=== PATIENT | female | born 1990 | race Caucasian/White ===

== ENCOUNTER 2024-01-15 16:41 | Emergency (ER) | payer MEDICAID ==
[~2024-01-15] VITALS: Ht 154.9 cm; Wt 81.8 kg
[2024-01-15 16:46] VITALS: TEMP 98.6
[2024-01-15] MEDS ORDERED: ARIP20TA63 PO (16:49)
[2024-01-15] MEDS ORDERED: BUPR-49 PO (16:49)
[2024-01-15] MEDS ORDERED: QUET50TA24 PO (16:49)
[2024-01-15 19:29] LABS: EOSINOPHILS % (AUTO) 1.2 % (1.0-6.0); HEMATOCRIT 41.9 % (36-46); HEMOGLOBIN 14.1 g/dL (12.0-16.0); LYMPHOCYTES # (AUTO) 1.9 K/uL (1.0-4.8); LYMPHOCYTES % (AUTO) 19.6 % (22.0-44.0); MEAN CORPUSCULAR HEMOGLOBIN 31.1 pg (26.0-34.0); MEAN CORPUSCULAR HGB CONC 33.6 G/dL (31.0-37.0); MEAN CORPUSCULAR VOLUME 93 fL (80-100); MONOCYTES # (AUTO) 0.9 K/uL (0.1-1.0); MONOCYTES % (AUTO) 8.7 % (2.0-9.0); NEUTROPHILS # (AUTO) 6.9 K/uL (1.8-7.7); NEUTROPHILS % (AUTO) 69.5 % (40.0-70.0); PLATELET COUNT (AUTO) 345 K/uL (150-450); RED BLOOD CELL COUNT(AUTO) 4.53 MIL/uL (4.00-5.20); RED CELL DISTRIBUTION WIDTH 12.8 % (11.5-14.5); WHITE BLOOD COUNT (AUTO) 9.8 K/uL (4.5-11.0)
[2024-01-15 19:40] LABS: CALCIUM, TOTAL 8.6 mg/dL (8.8-10.5); CREATININE 1.06 mg/dL (0.60-1.30); POTASSIUM 4.1 mmol/L (3.5-5.1)
[2024-01-15 23:00] VITALS: BP 125/56; PULSE 69; RESP 16; O2SAT 97
[2024-01-15] MEDS: CEPHALEXIN MONOHYDRATE 500 MG CAPSULE PO ONE (23:21)
[2024-01-15] MEDS: SULFAMETHOX/TRIMETH DS 800-160 MG/TABLET PO ONE (23:21)
[2024-01-16] MEDS: MetroNIDAZOLE 250 MG TABLET PO ONE (00:12)
[2024-01-16 00:34] LABS: APPEARANCE,URINE HAZY (CLEAR); BILIRUBIN,URINE NEGATIVE (NEGATIVE); COLOR,URINE LIGHT YELLOW (YELLOW); GLUCOSE, URINE (UA) NEGATIVE (NEGATIVE); KETONES,URINE NEGATIVE (NEGATIVE); LEUKOCYTE ESTERASE ,URINE LARGE (NEGATIVE); NITRATE,URINE NEGATIVE (NEGATIVE); OCCULT BLOOD,URINE NEGATIVE (NEGATIVE); PROTEIN,URINE TRACE mg/dL (NEGATIVE); SPECIFIC GRAVITIY, URINE 1.024 (1.003-1.030); UROBILINOGEN,URINE <=1.0 mg/dL (<=1.0)
[2024-01-16 01:00] LABS: BACTERIA,URINE Moderate /HPF (None Seen); RBC,URINE 0-2 /HPF (0-2); SQUAMOUS EPITHELIAL CELL,UR Few /LPF (None Seen); WBC,URINE 26-50 /HPF (0-5)
[2024-01-16] MEDS ORDERED: SULF-261 PO (02:14)
[2024-01-16] MEDS ORDERED: CEPH-558 PO (02:14)
[2024-01-16] MEDS ORDERED: METR500 PO (02:14)
[2024-01-16] MEDS ORDERED: ARIP400S3 IM (14:56)
[2024-01-16] MEDS ORDERED: NALT50TA33 PO (14:56)
[2024-01-16] MEDS ORDERED: QUET25TA PO (14:56)
[2024-01-16] MEDS ORDERED: ARIP10TA38 PO (14:56)
[2024-01-18 02:06] LABS: TREPONEMA PALLIDUM AB -TPPA Reactive (Non Reactive)
== END 2024-01-16 02:30 | disposition home or self-care (01) ==
LOC: EMS 16:45
DX: N76.0 Acute vaginitis (principal); B96.89 Other specified bacterial agents as the cause of diseases classified elsewhere; N76.2 Acute vulvitis; R30.0 Dysuria; Z79.899 Other long term (current) drug therapy
CPT/HCPCS: 80048; 81001; 84703; 85025; 86592; 86593; 86780; 87086; 87210; 87491; 87591; 99284

== ENCOUNTER 2024-01-16 14:37 | Emergency (ER) | payer MEDICAID ==
[~2024-01-16] VITALS: Ht 154.9 cm; Wt 79.1 kg
[~2024-01-16 14:37] MED LIST: ARIP20TA63 PO; BUPR-49 PO; CEPH-558 PO; METR500 PO; QUET50TA24 PO; SULF-261 PO
[2024-01-16] MEDS ORDERED: PENICILLIN G POTASSIUM 5 MILUNITS/VIAL IM ONE (14:45)
[2024-01-16 14:54] VITALS: BP 108/50; PULSE 82; RESP 18; TEMP 98.4; O2SAT 98
[2024-01-16] MEDS ORDERED: NALT50TA33 PO (14:56)
[2024-01-16] MEDS ORDERED: ARIP400S3 IM (14:56)
[2024-01-16] MEDS ORDERED: ARIP10TA38 PO (14:56)
[2024-01-16] MEDS ORDERED: QUET25TA PO (14:56)
[2024-01-16] MEDS ORDERED: PENICILLIN G BENZATHINE LA 1,200,000 UNITS/2 ML SYRINGE IM ONE (15:47)
[2024-01-16] MEDS: PENICILLIN G BENZATHINE LA 2,400,000 UNITS/4 ML SYRINGE IM ONE (15:50)
== END 2024-01-16 16:12 | disposition home or self-care (01) ==
LOC: EMS 14:37
DX: A53.9 Syphilis, unspecified (principal); N89.8 Other specified noninflammatory disorders of vagina; N18.9 Chronic kidney disease, unspecified; Z79.899 Other long term (current) drug therapy
CPT/HCPCS: 99283; 96372; J0561; J2540